=== PATIENT | male | born 1990 | race Caucasian/White ===

== ENCOUNTER 2025-03-22 10:25 | Emergency (ER) | payer OTHER, SELFPAY ==
[2025-03-22 10:36] VITALS: BP 117/85
[2025-03-22 11:04] LABS: % Basophils 1.4 % (0-2); % Eosinophils 6.5 % (0-6); % Lymphocytes 43.4 % (20.5-51.1); % Monocytes 10.9 % (1.7-9.3); % Neutrophils 37.8 % (42.2-75.2); Absolute Basophils 0.1 10^3/uL (0-0.2); Absolute Eosinophils 0.3 10^3/uL (0-0.7); Absolute Lymphocytes 2.2 10^3/uL (1.2-3.4); Absolute Monocytes 0.6 10^3/uL (0.1-0.6); Absolute Neutrophils 1.9 10^3/uL (1.4-6.5); Hematocrit 46.4 % (39.0-52.0); Hemoglobin 16.6 g/dL (13.0-18.0); Mean Corp Hgb Conc. 35.8 g/dL (33.0-37.0); Mean Corpuscular Hgb 30.9 pg (27.0-31.0); Mean Corpuscular Volume 86.2 fL (80.0-94.0); Mean Platelet Volume 9.8 fL (7.4-10.4); Nucleated Red Blood Cells % 0 % (-); Platelet Count 200 10^3/uL (130-400); Red Blood Cell Count 5.38 10^6/uL (4.70-6.10); Red Cell Dist. Width 11.9 % (11.5-14.5); White Blood Cell Count 5.1 10^3/uL (4.8-10.8)
[2025-03-22 11:19] LABS: ALT (SGPT) 31 U/L (0-50); AST (SGOT) 27 U/L (17-59); Albumin 5.2 g/dl (3.5-5.0); Alkaline Phosphatase 58 U/L (38-126); Blood Urea Nitrogen 14 mg/dl (9-20); Calcium 9.7 mg/dl (8.4-10.2); Carbon Dioxide 30 mmol/L (22-30); Chloride 105 mmol/L (98-107); Glucose 87 mg/dl (70-99); Potassium 4.6 mmol/L (3.5-5.1); Sodium 142 mmol/L (135-145); Total Bilirubin 0.9 mg/dl (0.2-1.3); eGFR > 60.00
[2025-03-22 14:42] VITALS: BP 125/77; BMI 26.5
--- NOTE | 2025-03-22 15:22 | ED.GENMED ---
History of Present Illness
General
Chief Complaint: Headache
Time Seen by Provider: 03/22/25 13:20
History of Present Illness
History of Present Illness:
34-year-old male presents to the emergency department for evaluation of intractable headaches for the past 3 weeks. Symptoms seem to wax and wane throughout the day without obvious provoking factors. He states he has had worsening symptoms when
bending forward however this is not always consistent. Has taken Tylenol and ibuprofen without relief. No night sweats or weight loss.
Review of Systems
Review of Systems
Allergies reviewed?: Yes
All Other Systems: ROS reviewed and negative except as documented in HPI and ROS
Phy Exam
Physical Exam
Physical Exam:
GEN: Well appearing, NAD, WDWN
HEENT: Oral mucosa moist, no scleral icterus, no nasal congestion
Cardiac: Regular rate
Lung: No respiratory distress, no tachypnea
MSK: No gross deformity or injuries
Skin: Good color, no pallor or jaundice, no rashes
Neuro: AO x3; CN II-XII grossly intact. BUE strength 5/5 in all abdalla, sensation intact and symmetric. BLE strength 5/5 in all abdalla, sensation intact and symmetric
Psych: Calm, cooperative
Course
Orders/Labs/Results
Orders:
Orders
03/22/25 10:52
CBC/With Diff [Complete Blood Count/With Diff] Urgent
Comprehensive Metabolic Panel Urgent
03/22/25 14:18
CT Head W/o Iv Contrast Urgent
Comment:
Reason For Exam: persistent headaches
Abnormal Lab Results
03/22/25
10:52
Neutrophils % 37.8 L %
(42.2-75.2)
Monocytes % 10.9 H %
(1.7-9.3)
Eosinophils % 6.5 H %
(0-6)
Albumin 5.2 H g/dl
(3.5-5.0)
03/22/25 10:52
03/22/25 10:52
Vital Signs
Initial and Last Documented VS:
Initial Vital Signs
Temp Pulse Resp BP Pulse Ox
97.9 F 78 16 117/85 98
03/22/25 10:36 03/22/25 10:36 03/22/25 10:36 03/22/25 10:36 03/22/25 10:36
Last Documented Vital Signs
Temp Pulse Resp BP Pulse Ox
97.9 F 68 16 125/77 98
03/22/25 10:36 03/22/25 14:42 03/22/25 14:42 03/22/25 14:42 03/22/25 14:42
MDM/Problems Addressed
MDM/Problems Addressed:
Imaging obtained due to the persistence of the headache over the past 3 weeks to rule out intracranial lesion, fortunately the scan was negative. He was noted to have chronic changes compatible with persistent sinusitis. Will treat with a course
of corticosteroids as an acute on chronic sinusitis may be provoking his symptoms, doubt this is bacterial in nature as he has no fevers or purulent rhinorrhea
*Critical Care Note
Total Time (30-74mins, 75-104mins- exclusive of procedures): Not Applicable
ED Attending Note
-
Portions of this chart may have been created with voice recognition software.� Occasional wrong word or��sound alike� substitutions may have occurred due to the inherent limitations of voice recognition software.
Discharge Plan
Departure
Patient Disposition: Home (Routine Discharge)
Date of Disposition: 03/22/25
Time of Disposition: 15:22
Patient with high blood pressure during this ER visit?: No
Discharge Problem:
Headache, Chronic sinusitis
Instructions: Headache, Adult (DC)
Prescriptions:
New
prednisone 20 mg tablet
40 mg PO DAILY 5 Days Qty: 10 0RF
Interventions
Interventions:
*Risk Screen - Suicide Last Done: 03/22/25 10:36
*General Assessment Last Done: 03/22/25 14:42
*Neglect/Abuse Screening Last Done: 03/22/25 10:36
*ED- Fall Risk Assessment Last Done: 03/22/25 14:42
*Nursing Disposition Last Done: 03/22/25 15:49
ED- Neurological Assessment Last Done: 03/22/25 14:42
Discharge Date and Time
Discharge Date/Time: 03/22/25 15:49
Print Language: URDU
== END 2025-03-22 15:49 | disposition home or self-care (01) ==
LOC: EMR 10:25
PROVIDERS: Emergency Medicine; EMERGENCY PHYSICIAN Student in an Organized Health Care Education/Training Program; FAMILY PHYSICIAN Family Medicine
DX: J32.9 Chronic sinusitis, unspecified (principal); R51.9 Headache, unspecified
CPT/HCPCS: 99285; 70450; 80053; 85025